=== PATIENT | male | born 2000 | race Caucasian/White ===

== ENCOUNTER 2024-05-15 05:38 | Emergency (ER) | payer OTHER ==
[~2024-05-15] VITALS: Ht 177.8 cm; Wt 81.8 kg
[2024-05-15 05:40] VITALS: BP 172/103
[2024-05-15] MEDS ORDERED: ALPRAZolam 0.5 MG TAB PO ONE (06:30)
[2024-05-15 07:10] LABS: PH-URINE 5.5 (5.0 - 8.0); URINE APPEARANCE CLEAR (CLEAR); URINE BILIRUBIN NEGATIVE (NEGATIVE); URINE BLOOD NEGATIVE (NEGATIVE); URINE COLOR YELLOW (YELLOW); URINE GLUCOSE NEGATIVE (NEGATIVE); URINE KETONE 1+ (NEGATIVE); URINE LEUKOCYTE ESTERASE NEGATIVE (NEGATIVE); URINE NITRATE NEGATIVE (NEGATIVE); URINE PROTEIN(semi-quant) 1+ (NEGATIVE)
[2024-05-15 07:11] LABS: URINE MUCUS PRESENT (NOT PRESENT)
== END 2024-05-15 07:20 | disposition left against medical advice (07) ==
LOC: ED 05:38
PROVIDERS: Family Medicine
DX: S61.512A Laceration without foreign body of left wrist, initial encounter (principal); F32.A Depression, unspecified; F17.290 Nicotine dependence, other tobacco product, uncomplicated; Z79.899 Other long term (current) drug therapy; X78.1XXA Intentional self-harm by knife, initial encounter; Y92.818 Other transport vehicle as the place of occurrence of the external cause